=== PATIENT | female | born 1945 | race Caucasian/White ===

== ENCOUNTER 2017-04-27 19:58 | Emergency (ER) | payer OTHER ==
[2017-04-27 20:05] VITALS: RESP 16; O2SAT 96
--- NOTE | 2017-04-27 20:29 | EDPHY ---
H & P Time Seen by Provider: 04/27/17 20:09 HPI/ROS: CHIEF COMPLAINT: Right arm laceration HISTORY OF PRESENT ILLNESS: 71-year-old female with up-to-date tetanus sustained accidental laceration to her right wrist radial ulnar aspect when the garage door pinched both of these aspects. No paresthesia. PHYSICAL EXAM (Prior to examination, patient consented to physical exam, hands were washed and my usual and customary physical exam procedures followed) 1) GENERAL: Well-developed, well-nourished, alert and oriented. Appears to be in no acute distress. 2) HEAD: Normocephalic 3) HEENT: Pupils equal, round, reactive to light bilaterally. 4) LUNGS: Breathing comfortably. 5) MUSCULOSKELETAL: Soft compartments. Normal coloration. 6) SKIN: right ulnar wrist 2 cm laceration, right radial wrist 1 cm laceration and skin tear 7) VASCULAR: pulses and cap refill present are brisk 8) NEUROLOGIC: Radial, ulnar, median nerve function intact with no deficits appreciated on exam s. Smoking Status: Never smoked Constitutional: Initial Vital Signs Temperature (C) 36.6 C 04/27/17 20:01 Heart Rate 81 04/27/17 20:01 Respiratory Rate 16 04/27/17 20:01 Blood Pressure 139/73 H 04/27/17 20:01 O2 Sat (%) 96 04/27/17 20:01 O2 Delivery Mode Room Air Allergies/Adverse Reactions: codeine Allergy (Verified 04/27/17 20:01) Penicillins Allergy (Verified 04/27/17 20:01) Home Medications: Medication Instructions Recorded Eye Drops Dispenser 03/20/16 Qvar 40 (RX) 03/20/16 Albuterol 04/27/17 MDM/Departure - MDM Imaging Results: Imaging Impressions Wrist X-Ray 04/27/17 20:13 Impression: Subcutaneous emphysema compatible with skin injury, without fracture or radiopaque foreign object. Procedures: Procedure: Laceration repair. I explained the indications, risks and benefits for both laceration repair and anesthetic administration. Verbal consent was obtained from the patient . The laceration on the right wrist was anesthetized using 0.5% bupivicaine with epinephrine . After anesthetic administered the patient was observed for a period of time and had no apparent adverse effects. The wound was cleaned, prepped, draped in normal sterile fashion and explored to its base. No foreign body seen, no foreign bodies palpated. There were no deep structures involved. No tendon injury was identified. The radial laceration closed with 1 simple interrupted 4 0 Prolene suture, the ulnar laceration closed with running suture of 4 0 Prolene. The wound repair was simple. The procedure was performed by myself. Patient has been informed that scarring will occur, although efforts have been made to minimize this. - Depart Disposition: Home, Routine, Self-Care Clinical Impression: Laceration of right wrist Qualifiers: Encounter type: initial encounter Qualified Code(s): S61.511A - Laceration without foreign body of right wrist, initial encounter Condition: Good Instructions: Care For Your Stitches (ED), Laceration (ED) Additional Instructions: Return to the ER if you develop redness, swelling, discharge, warmth to the wound, red streaks going up your arm , or any other symptoms that concern you. Referrals: Return, to the ER in 10 days for suture removal [Other] - As per Instructions
[2017-04-27 21:20] VITALS: BP 134/71; PULSE 74; TEMP 98.1
== END 2017-04-27 21:16 | disposition home or self-care (01) ==
PROC: 0HQDXZZ Repair Right Lower Arm Skin, External Approach (ICD-10-PCS; principal; 2017-04-27)
DX: S61.511A Laceration without foreign body of right wrist, initial encounter (principal); W22.8XXA Striking against or struck by other objects, initial encounter; Y99.8 Other external cause status; Y93.89 Activity, other specified

== ENCOUNTER 2017-05-31 10:12 | Emergency (ER) | payer OTHER ==
[2017-05-31] MEDS ORDERED: predniSONE 20 MG TAB PO ONE (10:35)
[2017-05-31] MEDS ORDERED: LORazepam 1 MG TAB PO ONE (10:35)
[2017-05-31] MEDS ORDERED: diphenhydrAMINE 25 MG CAP PO ONE (10:35)
[2017-05-31] MEDS ORDERED: FAMOTIDINE 20 MG TAB PO ONE (10:35)
--- NOTE | 2017-05-31 10:37 | EDPHY ---
H & P Stated Complaint: Stung by wasp on R hand;localized reaction; very anxious Time Seen by Provider: 05/31/17 10:26 HPI/ROS: CHIEF COMPLAINT: Wasp sting right hand HISTORY OF PRESENT ILLNESS: 71-year-old female arrives via private vehicle, drove herself to the emergency department complaining acute right hand wasp sting which occurred approximately 10:10 a.m. this morning. She is complaining of localized pain. She is complaining of anxiety. No history of anaphylaxis. No history of urticaria. She denies: Dysphagia, odynophagia, change in voice, dyspnea, wheezing, abdominal pain, nausea, vomiting. REVIEW OF SYSTEMS: A ten point review of systems was performed and is negative with the exception of the items mentioned in the HPI PAST MEDICAL & SURGICAL HISTORY: COPD SOCIAL HISTORY: nonsmoker PHYSICAL EXAM (Prior to examination, patient consented to physical exam, hands were washed and my usual and customary physical exam procedures followed) 1) GENERAL: Well-developed, well-nourished, alert and oriented. Appears anxious. 2) HEAD: Normocephalic, atraumatic 3) HEENT: Pupils equal, round, reactive to light bilaterally. Sclera anicteric. Nasopharynx, oropharynx, clear, no lesions. No tonsillar or glossal enlargement. No trismus no drooling. 4) NECK: Full range of motion, no meningeal signs. 5) LUNGS: Clear auscultation bilaterally, no wheezes, no rhonchi, no retractions. 6) HEART: Regular rate and rhythm, no murmur, no heave, no gallop. 7) ABDOMEN: No guarding, no rebound, no focal tenderness, negative McBurney's, negative Aranda's, negative Rovsing's, negative peritoneal sign, unable to elicit any abdominal pain 8) MUSCULOSKELETAL: Right upper extremity: Faint area of erythema right dorsal hand with no visible stinger. No lymphangitic streaking. Full range of motion of the right hand. 9) BACK: no visual or palpable abnormality. 10) SKIN: No rash, no petechiae. 11) Psychiatric: Patient is oriented X 3, there is no agitation. DIFFERENTIAL DIAGNOSIS: in no particular include but limited to anaphylaxis, urticaria, acute anxiety - Personal History Current Tetanus Diphtheria and Acellular Pertussis (TDAP): Yes Tetanus Vaccine Date: 2016 - Medical/Surgical History Hx Asthma: Yes Hx Chronic Respiratory Disease: No Hx Diabetes: No Hx Cardiac Disease: No Hx Renal Disease: No Hx Cirrhosis: No Hx Alcoholism: No Hx HIV/AIDS: No Hx Splenectomy or Spleen Trauma: No Other PMH: CHOLY/CATARACT SURGERY, asthma - Social History Smoking Status: Never smoked Constitutional: Initial Vital Signs Temperature (C) 36.5 C 05/31/17 10:20 Heart Rate 76 05/31/17 10:20 Respiratory Rate 18 05/31/17 10:20 Blood Pressure 131/60 H 05/31/17 10:20 O2 Sat (%) 100 05/31/17 10:20 O2 Delivery Mode Room Air Allergies/Adverse Reactions: codeine Allergy (Mild, Verified 05/31/17 10:30) GI Penicillins Allergy (Unknown, Verified 05/31/17 10:30) Home Medications: Medication Instructions Recorded Qvar 40 (RX) 03/20/16 Albuterol 04/27/17 EPINEPHRINE [EPIPEN] 0.3 mg IM ONCE #2 syr 05/31/17 Medical Decision Making ED Course/Re-evaluation: 10:37 a.m.: Patient currently appears anxious. Doubt anaphylaxis at this time. She will be observed for a period of time in the emergency department, given H1 H2 blockers as well as prednisone. I do not think that epinephrine currently indicated in this patient. She also be given Ativan as she is complaining of acute anxiety. 11:08 a.m.: Re-evaluation, sleeping, appears comfortable - Data Points Medications Given: Discontinued Medications Diphenhydramine HCl (Benadryl) 50 mg PO EDNOW ONE Stop: 05/31/17 10:36 Last Admin: 05/31/17 10:40 Dose: 50 mg Famotidine (Pepcid) 40 mg PO EDNOW ONE Stop: 05/31/17 10:36 Last Admin: 05/31/17 10:40 Dose: 40 mg Lorazepam (Ativan) 1 mg PO EDNOW ONE Stop: 05/31/17 10:36 Last Admin: 05/31/17 10:40 Dose: 1 mg Prednisone (Prednisone) 60 mg PO EDNOW ONE Stop: 05/31/17 10:36 Last Admin: 05/31/17 10:40 Dose: 60 mg Departure - Departure Disposition: Home, Routine, Self-Care Clinical Impression: Wasp sting Qualifiers: Encounter type: initial encounter Injury intent: accidental or unintentional Qualified Code(s): T63.461A - Toxic effect of venom of wasps, accidental ( unintentional), initial encounter Condition: Good Instructions: Insect Bite or Sting (ED) Additional Instructions: Use your EpiPen if you are stung by a bee and start developing allergic reaction like symptoms and then call 911 Referrals: GERMANIA DOWNS [Primary Care Provider] - 1-2 days without fail Prescriptions: EPINEPHRINE [EPIPEN] 0.3 mg IM ONCE #2 syr
[2017-05-31 13:49] VITALS: RESP 16
[2017-05-31 13:52] VITALS: BP 119/55; PULSE 62; TEMP 98.2; O2SAT 94
== END 2017-05-31 13:53 | disposition home or self-care (01) ==
DX: T63.461A Toxic effect of venom of wasps, accidental (unintentional), initial encounter (principal); J44.9 Chronic obstructive pulmonary disease, unspecified